=== PATIENT | female | born 1975 | race Caucasian/White ===

== ENCOUNTER 2016-12-14 19:53 | Emergency (ER) | payer MEDICARE, OTHER ==
[~2016-12-14] VITALS: Ht 177.8 cm; Wt 113.4 kg
[2016-12-14] MEDS ORDERED: SEROQUEL XR300 MG PO (20:02)
== END 2016-12-14 21:10 | disposition home or self-care (01) ==
LOC: ED 19:53
PROC: 0HQFXZZ Repair Right Hand Skin, External Approach (ICD-10-PCS; principal; 2016-12-14)
DX: S61.411A Laceration without foreign body of right hand, initial encounter (principal); F31.9 Bipolar disorder, unspecified; F17.200 Nicotine dependence, unspecified, uncomplicated; Z79.899 Other long term (current) drug therapy; W26.0XXA Contact with knife, initial encounter
CPT/HCPCS: 12002; 90471; 90715; 99282

== ENCOUNTER 2017-08-15 06:45 | Day surgery (SDC) | payer MEDICARE, OTHER ==
[~2017-08-15] VITALS: Ht 177.8 cm; Wt 114.8 kg
[~2017-08-15 06:45] MED LIST: SEROQUEL XR300 MG PO; TOPROL XL50 MG PO
--- NOTE | 2017-08-15 12:32 | NUR ---
08/15/17 1232 Alma Hernandez 1213 PT ARRIVED WITH ORAL AIRWAY IN PLACE ON 10L VIA MASK. PT NON AROUSABLE TO PAINFUL STIMULI. 1228 MD AT BEDSIDE.
--- NOTE | 2017-08-15 13:35 | NUR ---
LE 1315: PT ARRIVES TO DS RM 5. PT DROWSY ON ARRIVAL WITH EYES CLOSED. PT MOTHER IN ROOM ON ARRIVAL. ICED WATER, CRACKERS, AND PUDDING PROVIDED TO PT. MARLEEN COLEMAN ON WARM. PT CALL LIGHT W/IN REACH, NO FURTHER C/O'S AT THIS TIME.
--- NOTE | 2017-08-15 14:21 | NUR ---
PT HAS MET TWO HOUR CRITERIA FOR WAHL CATHETER. WAHL DC'D WNL. 8.5 MLS NS REMOVED WITH SYRINGE FROM BALLOON. PT TOLERATED WELL. WILL DOCUMENT FURTHER WHEN PT AMBULATES TO BR TO VOID.
--- NOTE | 2017-08-15 15:29 | NUR ---
PT RESTING QUIETLY WITH EYES CLOSED. SIGNIFICANT OTHER AT BEDSIDE. PT DENIES ANY FURTHER NEEDS AT THIS TIME. CALL LIGHT W/IN REACH.
--- NOTE | 2017-08-15 16:02 | NUR ---
PT UP TO BR WITH RN ASSIST. PT VOIDS 250 MLS CONCENTRATED YELLOW URINE. PT BACK IN WITH MOTHER AND SON AT BEDSIDE. PT REQUESTS PUDDING. PT PAINFUL AFTER AMBULATING TO BR. PT GIVEN PAIN MEDICATION. NO FURTHER C/O'S AT THIS TIME. CALL LIGHT W/IN REACH.
--- NOTE | 2017-08-15 16:09 | NUR ---
DR. HENRIQUEZ NOTIFIED THAT PT HAS MET ALL DC CRITERIA AND IS READY FOR DC INSTRUCTIONS.
--- NOTE | 2017-08-15 16:48 | NUR ---
PT ASKING ABOUT PRESCRIPTIONS SO FAMILY CAN FILL BEFORE THEIR PHARMACY CLOSES. DR. HENRIQUEZ NOTIFIED. PT PROVIDED ORANGE JUICE. SIGNIFICANT OTHER AT BEDSIDE. CALL LIGHT W/IN REACH.
--- NOTE | 2017-08-15 17:13 | NUR ---
DR. HENRIQUEZ IN TO TALK TO PT. PT AGREES SHE IS READY TO GO HOME.
[2017-08-15] MEDS ORDERED: IBUPROFEN800 MG PO (17:26)
[2017-08-15] MEDS ORDERED: PERCOCET 5-3251 EACH PO (17:26)
--- NOTE | 2017-08-15 17:37 | NUR ---
DC INSTRUCTIONS GIVEN IN PRESENCE OF PT, MOTHER, AND SIG OTHER. INSTRUCTIONS UNDERSTOOD AND VERBALIZED BY ALL. QUESTIONS ANSWERED. PT DC'S DS RM 5 VIA WHEELCHAIR WITH FAMILY.
--- NOTE | 2017-08-16 07:41 | NUR ---
PT IN BED, ALERT, ORIENTED AND SUPPORTED BY HER SHA. SHE SEEMED TO BE INFORMED, HAD FEW QUESTIONS, SHA VERY QUIET. PRAYED WITH PT, WILL FOLLOW NEEDED
--- NOTE | 2017-09-19 12:54 | OR ---
[facility] [address], [place] [address] Signed DATE OF OPERATION: 08/15/2017 SURGEON: Saumya Almazan DO PREOPERATIVE DIAGNOSES: 1. Abnormal uterine bleeding. 2. Fibroid uterus. 3. Tobacco use disorder. POSTOPERATIVE DIAGNOSES: 1. Abnormal uterine bleeding. 2. Large fibroid uterus with weight pending. 3. Tobacco use disorder. 4. Pyuria. PROCEDURES PERFORMED: 1. Total laparoscopic hysterectomy. 2. Bilateral salpingectomy. 3. Cystoscopy. SUPERVISOR [employer]: Rj Torres MD ANESTHESIA: General. ESTIMATED BLOOD LOSS: 50 mL. SPECIMEN: 1. Uterus, tubes, cervix, and fibroids. 2. Urine for micro and culture. CULTURES: Urine. FINDINGS: The patient with normal external genitalia with normal clitoris, urethral meatus, bilateral skin and Bartholin's glands. Her cervix is normal. On laparoscopy, she has a very large fibroid uterus with multiple fibroids. She has normal tubes and ovaries Electronically Signed By: SAUMYA ALMAZAN DO 09/19/17 1254 PATIENT NAME: KRISHNA BROWN OPERATIVE REPORT DATE OF : 79 REPORT #: [id number] PHYSICIAN: SAUMYA ALMAZAN DO PCP: MAIDA LOPEZ DO REPORT IS CONFIDENTIAL AND NOT TO BE RELEASED WITHOUT AUTHORIZATION [facility] [address] [place] [id number] Signed bilaterally. Her upper right quadrant is normal. On cystoscopy, she has normal bladder with bilateral ureteral jets noted. Urine is particulate and cloudy and was sent for urinalysis, microscopy and culture. COMPLICATIONS: None. INDICATIONS: Ms. Brown is a pleasant 41-year-old female who presents for total laparoscopic hysterectomy for a fibroid uterus and abnormal uterine bleeding. The ultrasound demonstrated a large multi fibroid uterus, and bleeding has become beyond what the patient can tolerate. The patient is Zoroastrian and refused all blood products prior to her surgery. Risks, benefits, and alternatives were discussed in detail with the patient. The patient understands and wished to proceed with the procedure. TECHNIQUE: The patient was taken to the operating room. A time-out was performed to confirm correct patient, correct procedure. General anesthesia was adequately established. The patient was prepped and draped in the dorsal lithotomy position with her feet in Yellofin stirrups. Arms were tucked to the side. A weighted speculum was placed in the vagina and the anterior lip of the cervix was grasped with a single-tooth tenaculum. A Cleverare uterine manipulator was gently placed and the single-tooth tenaculum was removed. A Martines catheter was inserted and attention was turned to the base of the umbilicus after the surgeon's gloves were changed. The umbilicus was infiltrated with 10 mL of 0.25% Marcaine with epinephrine and incision was made. The fascia was grasped with hemostats elevated, and divided sharply. The stay sutures were applied to the fascia and peritoneum was entered bluntly. Peritoneal entry is confirmed with a curved S retractor and trocar was placed under direct visualization without complication. Pneumoperitoneum was established and survey of the abdomen and pelvis was performed. A large fibroid uterus was noted. However, it was determined, this could likely be removed laparoscopically and decision was made to proceed with total laparoscopic hysterectomy. A 5 mm assist port was placed in the left lower quadrant under direct visualization without complication and an 8 mm expanding port was placed in the right lower quadrant without complication. The left fallopian tube was grasped at the fimbriated end and divided from the ovary without complication using the ligature bipolar device. Dissection was carried across the mesosalpinx and the fallopian tube was divided near the cornu and was removed. The left utero-ovarian ligament was then fulgurated and divided with good hemostasis. The left round ligament was then fulgurated and divided without complication. The ureter on the left was found at the pelvic brim and followed down through the pelvis and noted to be well away from the pedicles. The posterior leaf of the broad ligament was then divided to the uterosacral Electronically Signed By: SAUMYA ALMAZAN DO 09/19/17 1254 PATIENT NAME: KRISHNA BROWN OPERATIVE REPORT DATE OF : 79 REPORT #: [id number] PHYSICIAN: SAUMYA ALMAZAN DO PCP: MAIDA LOPEZ DO REPORT IS CONFIDENTIAL AND NOT TO BE RELEASED WITHOUT AUTHORIZATION [facility] [address], [place] [address] Signed ligament and attention was turned to the anterior leaf. There was a large anterior fibroid noted. However, good visualization was available and the anterior leaf was dissected without difficulty. The bladder was pushed down well below the cervical cup. The uterine arteries were then fulgurated and divided. Attention was turned to the right side, where the right fimbriated end of the tube was elevated and divided from the ovary. This was again carried along the mesosalpinx and divided near the cornu and the tube was removed. The right utero-ovarian ligament was fulgurated and divided and the ureter was then identified and noted to be well away from the post pedicles. The right utero-ovarian ligament was fulgurated and divided and the posterior peritoneum was divided down just beyond the right uterosacral ligament. This dissection was somewhat difficult due to the weight of the uterus and a very large posterior fibroid. Good visualization was observed and the ureter was noted to be well away from this dissection. Attention was then turned to the anterior leaf of the broad ligament on the right, which was carried down to the bladder flap that had been created, and the bladder flap was completed, and again the bladder was pushed down well below the cervical cup. Some bleeding at this point was noted from the uterine artery, and it was fulgurated and divided. A small amount of oozing was noted again and the uterine artery was again fulgurated and divided just lateral to the prior division. There was small venous back bleeding noted in the paracervical tissue, and this was divided and cleared using the ligature device. The cervix and paracervical tissue were then fulgurated and divided, clearing a good dissection plane around the cervical cuff bilaterally. Once we were satisfied with this dissection, the Sonicision device was inserted into the abdomen under direct visualization and colpotomy was performed starting at 6 o'clock and carried clockwise to the 12 o'clock position. The colpotomy was then completed from 6 o'clock to 12 o'clock in a counterclockwise manner with good hemostasis. The VCare uterine manipulator was then removed and pneumoperitoneum was maintained using a glove stuffed in the vagina. A 15 mm EndoCatch bag was then placed through the umbilical port and the uterus and cervix were manipulated into this bag. The bag was then brought up through the umbilical incision. An Armando O self-retractor was placed. No spillage of uterine tissue was noted during this process. The uterus was then grasped at the serosal edge with a tri-tooth tenaculum elevated and the uterus was then externally morcellated using an #11 blade in the ExCITE technique and long multiple strips. Careful attention was used to ensure that the knife blade was outside of the umbilicus and no perforation of the bag was noted. Once the uterus, cervix, and fibroids had been removed, after some time, the tissue was sent to the pathology for further evaluation. The Armando O and the EndoCatch bag were examined and found, not be compromised. The Mikal port was reinserted and pneumoperitoneum was re-established. Survey of the abdomen and bowel were noted without injury. Attention was then turned to closure of the colpotomy. The uterosacral ligament on the right was grasped and the endo-stitch device was used to close the vagina in the standard fashion using V-Loc suture with careful attention to incorporate the vaginal epithelium with each bite. Good hemostasis and closure were noted and again careful attention was paid to incorporate the uterosacral ligaments Electronically Signed By: SAUMYA ALMAZAN DO 09/19/17 1254 PATIENT NAME: KRISHNA BROWN OPERATIVE REPORT DATE OF : 79 REPORT #: [id number] PHYSICIAN: SAUMYA ALMAZAN DO PCP: MAIDA LOPEZ DO REPORT IS CONFIDENTIAL AND NOT TO BE RELEASED WITHOUT AUTHORIZATION [facility] [address], [place] [address] Signed bilaterally. Good vaginal support was noted. The pelvis was hemostatic, but Magdiel powder was placed to ensure hemostasis. After ensuring that this was not derived from human blood products. Pneumoperitoneum was slowly reduced and hemostasis was maintained. The ports were removed under direct visualization and the Mikal port was then removed. The fascia was reapproximated using 0 Vicryl in a running nonlocked stitch. Stay sutures were then tied to reinforce this incision. The skin incisions were repaired using 4-0 Vicryl and a subcuticular stitch with good hemostasis and cosmesis. The surgical sites were bandaged and attention was then turned to cystoscopy. Martines catheter was reinserted and a diagnostic cystoscope was placed in the urethral meatus and advanced under direct visualization to the bladder. While removing the Martines catheter, particulate matter was noted inside the urine and tubing and this was sent for culture, microscopy, and urinalysis. Once inside the bladder, the bladder was examined in total. Normal bladder was observed with some particulate matter inside the bladder. The ureteral orifices were noted and bilateral ureteral jets were noted. The bladder was drained. The Martines catheter was reinserted. The patient was then taken to the PACU in good and stable condition. After removal of glove, examination of the vaginal apex was noted to be intact. Sponge, needle, and instrument count was correct x2 at the end of the procedure. Dr. Torres was present and participated to all portions of the procedure. Saumya Almazan DO JDW/MODL /[id number] Copies: ~ Electronically Signed By: SAUMYA ALMAZAN DO 09/19/17 1254 PATIENT NAME: KRISHNA BROWN OPERATIVE REPORT DATE OF : 79 REPORT #: [id number] PHYSICIAN: SAUMYA ALMAZAN DO PCP: MAIDA LOPEZ DO REPORT IS CONFIDENTIAL AND NOT TO BE RELEASED WITHOUT AUTHORIZATION
== END 2017-08-15 17:38 | disposition home or self-care (01) ==
LOC: DS 06:45 → OPS 06:45 → DS 08:45 → OPS 17:38
PROVIDERS: Obstetrics & Gynecology
PROC: 0UT94ZZ Resection of Uterus, Percutaneous Endoscopic Approach (ICD-10-PCS; principal; 2017-08-15 08:45)
PROC: 0UT74ZZ Resection of Bilateral Fallopian Tubes, Percutaneous Endoscopic Approach (ICD-10-PCS; 2017-08-15 08:45)
DX: D25.9 Leiomyoma of uterus, unspecified (principal); N39.0 Urinary tract infection, site not specified; F32.9 Major depressive disorder, single episode, unspecified; I10 Essential (primary) hypertension; H91.93 Unspecified hearing loss, bilateral; F17.210 Nicotine dependence, cigarettes, uncomplicated; E66.01 Morbid (severe) obesity due to excess calories; Z79.899 Other long term (current) drug therapy; Z68.36 Body mass index [BMI] 36.0-36.9, adult
CPT/HCPCS: 00944; 81001; 88307; J0330; J0690; J1100; J1885; J2250; J2405; J2704; J2710; J2765; J3010; J7120